=== PATIENT | male | born 1965 | race African-American/Black ===

== ENCOUNTER 2017-06-07 15:20 | Emergency (ER) | payer MEDICAID | END 2017-06-07 16:38 | disposition home or self-care (01) | LOC: ER 15:20 | DX: M54.2 Cervicalgia (principal); Z86.718 Personal history of other venous thrombosis and embolism | CPT/HCPCS: 70450; 72125; 99284-25 ==

== ENCOUNTER 2017-08-13 11:58 | Emergency (ER) | payer MEDICAID ==
[2017-08-13 12:37] LABS: ADD MAN DIFF? NO
[2017-08-13 12:50] LABS: ANION GAP 11 (6-14); BLOOD UREA NITROGEN 11 mg/dL (8-26); BUN/CREATININE RATIO 10 (6-20); CALCIUM 9.2 mg/dL (8.5-10.1); CARBON DIOXIDE 26 mmol/L (21-32); CHLORIDE 103 mmol/L (98-107); CREATININE 1.1 mg/dL (0.7-1.3); GFR 84.7; GLUCOSE 119 mg/dL (70-99); POTASSIUM 4.2 mmol/L (3.5-5.1); SODIUM 140 mmol/L (136-145)
[2017-08-13 12:52] LABS: BASO % 1 % (0-3); EOS # 0.1 x10^3/uL (0.0-0.7); EOS % 3 % (0-3); HEMATOCRIT 41.5 % (39.0-53.0); HEMOGLOBIN 13.9 g/dL (13.0-17.5); LYMPH # 0.9 x10^3/uL (1.0-4.8); LYMPH % 20 % (24-48); MEAN CORPUSCULAR HEMOGLOBIN 30 pg (25-35); MEAN CORPUSCULAR HGB CONC 34 g/dL (31-37); MEAN CORPUSCULAR VOLUME 88 fL (79-100); MONO # 0.5 x10^3/uL (0.0-1.1); MONO % 11 % (0-9); NEUT % 65 % (31-73); PLATELET COUNT 179 x10^3/uL (140-400); RED BLOOD COUNT 4.69 x10^6/uL (4.30-5.70); RED CELL DISTRIBUTION WIDTH 14.9 % (11.5-14.5); WHITE BLOOD COUNT 4.6 x10^3/uL (4.0-11.0)
[2017-08-13 12:56] LABS: ALBUMIN 3.5 g/dL (3.4-5.0); ALK PHOS 89 U/L (46-116); ALT (SGPT) 35 U/L (16-63); AST (SGOT) 34 U/L (15-37); TOTAL BILIRUBIN 0.5 mg/dL (0.2-1.0); TOTAL PROTEIN 7.1 g/dL (6.4-8.2)
[2017-08-13 13:03] LABS: INR 1.3 (0.8-1.1); PROTHROMBIN TIME PATIENT 15.7 SEC (11.7-14.0)
== END 2017-08-13 14:20 | disposition home or self-care (01) ==
LOC: ER 11:58
DX: I82.402 Acute embolism and thrombosis of unspecified deep veins of left lower extremity (principal)
CPT/HCPCS: 36415; 80053; 85025; 85610; 93971; 99285-25

== ENCOUNTER 2017-10-30 12:54 | Emergency (ER) | payer MEDICAID ==
[2017-10-30] MEDS: DIPHTH,PERTUSS(ACELL),TET TOX 0.5 ML DISP.SYRIN. VAX IM (13:21)
== END 2017-10-30 13:40 | disposition home or self-care (01) ==
LOC: ER 12:54
DX: S51.812A Laceration without foreign body of left forearm, initial encounter (principal); Z86.718 Personal history of other venous thrombosis and embolism; Y28.8XXA Contact with other sharp object, undetermined intent, initial encounter; Y93.89 Activity, other specified; Y99.8 Other external cause status; Y92.89 Other specified places as the place of occurrence of the external cause
CPT/HCPCS: 90471; 90715; 99283